=== PATIENT | male | born 1960 | race Caucasian/White ===

== ENCOUNTER → 2024-07-17 11:27 | Outpatient (REF) | payer BC, SELFPAY | LOC: HWRAD 11:27 | PROVIDERS: ATTENDING PHYSICIAN Family Medicine | DX: R52 Pain, unspecified (principal) | CPT/HCPCS: 72072; 72110; 72170; 73030 ==

== ENCOUNTER → 2024-08-21 12:11 | Outpatient (REF) | payer BC, SELFPAY | LOC: HWRAD 12:11 | PROVIDERS: ATTENDING PHYSICIAN Family Medicine | DX: S16.1XXA Strain of muscle, fascia and tendon at neck level, initial encounter (principal) | CPT/HCPCS: 72040 ==